=== PATIENT | female | born 1995 | race Caucasian/White ===

== ENCOUNTER 2017-07-02 19:40 | Emergency (ER) | payer OTHER | END 2017-07-02 22:30 | disposition home or self-care (01) | LOC: M ED 19:40 | DX: B34.9 Viral infection, unspecified (principal); F17.210 Nicotine dependence, cigarettes, uncomplicated | CPT/HCPCS: 87804 ==

== ENCOUNTER → 2017-12-18 | Outpatient (CLI) | payer OTHER | LOC: M RAD 14:12 | DX: Z34.82 Encounter for supervision of other normal pregnancy, second trimester (principal) | CPT/HCPCS: 76811 ==

== ENCOUNTER → 2017-12-25 | Outpatient (CLI) | payer OTHER | LOC: M SMT 13:23 | DX: Z34.82 Encounter for supervision of other normal pregnancy, second trimester (principal); Z36.89 Encounter for other specified antenatal screening | CPT/HCPCS: 36415 ==

== ENCOUNTER → 2018-01-01 | Outpatient (CLI) | payer OTHER | LOC: M RAD 10:07 | DX: Z34.82 Encounter for supervision of other normal pregnancy, second trimester (principal); Z36.89 Encounter for other specified antenatal screening; Z3A.19 19 weeks gestation of pregnancy | CPT/HCPCS: 76816 ==

== ENCOUNTER → 2018-01-26 | Outpatient (CLI) | payer OTHER | LOC: M RAD 14:11 | DX: Z36.89 Encounter for other specified antenatal screening (principal); Z3A.23 23 weeks gestation of pregnancy | CPT/HCPCS: 76816 ==

== ENCOUNTER → 2018-02-15 | Outpatient (CLI) | payer OTHER ==
[2018-02-15 13:19] LABS: HEMATOCRIT 35.7 % (36.0-47.0); HEMOGLOBIN 11.5 g/dl (12.0-15.5); MEAN CORPUSCULAR HEMOGLOBIN 30.1 pg (27.0-33.0); MEAN CORPUSCULAR HGB CONC 32.2 g/dl (32.0-36.5); MEAN CORPUSCULAR VOLUME 93.5 fl (80.0-96.0); PLATELET COUNT, AUTOMATED 118 10^3/uL (150-450); RED BLOOD COUNT 3.82 10^6/uL (4.00-5.40); RED CELL DISTRIBUTION WIDTH 13.3 % (11.5-14.5); WHITE BLOOD COUNT 16.3 10^3/uL (4.0-10.0)
[2018-02-15 13:21] LABS: POSITIVE MORPH POS FLAG
[2018-02-15 14:52] LABS: GLUCOSE CHALLENGE TEST 1 HOUR 181 MG/DL (LESS THAN 140)
== END ==
LOC: M SMT 09:59
DX: Z34.82 Encounter for supervision of other normal pregnancy, second trimester (principal)
CPT/HCPCS: 82950

== ENCOUNTER → 2018-03-13 | Outpatient (CLI) | payer OTHER ==
[2018-03-13 08:44] LABS: GLUCOSE, FASTING 93 MG/DL (LESS THAN 95)
[2018-03-13 13:54] LABS: 3 HR GLUCOSE 78 MG/DL (LESS THAN 140)
[2018-03-13 15:02] LABS: 1 HR GLUCOSE 230 MG/DL (LESS THAN 180)
[2018-03-13 15:03] LABS: 2 HR GLUCOSE 187 MG/DL (LESS THAN 155)
== END ==
LOC: M LAB 08:03
DX: Z34.82 Encounter for supervision of other normal pregnancy, second trimester (principal)

== ENCOUNTER → 2018-04-24 | Outpatient (REF) | payer OTHER | LOC: M LAB REF 17:15 | DX: Z34.83 Encounter for supervision of other normal pregnancy, third trimester (principal); Z3A.00 Weeks of gestation of pregnancy not specified ==

== ENCOUNTER 2018-05-12 13:45 | Inpatient (IN) | payer OTHER ==
[2018-05-12 14:39] LABS: HEMATOCRIT 35.7 % (36.0-47.0); HEMOGLOBIN 11.6 g/dl (12.0-15.5); MEAN CORPUSCULAR HGB CONC 32.5 g/dl (32.0-36.5); PLATELET COUNT, AUTOMATED 152 10^3/uL (150-450); RED CELL DISTRIBUTION WIDTH 13.6 % (11.5-14.5); WHITE BLOOD COUNT 15.3 10^3/uL (4.0-10.0)
[2018-05-12 15:13] LABS: BEDSIDE GLUCOSE 108 MG/DL (70-105)
[2018-05-12] MEDS: OXYTOCIN DRIP 30 UNITS in APPROPRIATE DILUENT 1 EA IV (15:39)
[2018-05-12] MEDS: LR 1,000 ML IV (15:39)
[2018-05-12] MEDS ORDERED: FENTANYL 2MCG/ML ROPIVACAINE 0.2% IN 0.9% NACL 200ML IVBAG As Ordered (19:40)
[2018-05-12] MEDS ORDERED: NALOXONE INJ 0.4 MG/1 ML VIAL (J2310) IV (22:00)
[2018-05-12] MEDS ORDERED: EPIDURAL COMMENT XX (22:00)
[2018-05-12] MEDS ORDERED: EPIDURAL/PCA KEYS XX (22:00)
[2018-05-12] MEDS ORDERED: diphenhydrAMINE INJ 50MG/ML VIAL (J1200) IV (22:00)
[2018-05-12] MEDS ORDERED: REFRIGERATOR IV KEYS XX (22:00)
[2018-05-12] MEDS ORDERED: ePHEDrine SULFATE 25 MG/5 ML(5MG/ML) SYRINGE IV (22:00)
[2018-05-12] MEDS ORDERED: FENTANYL/ROPIVACAINE/NACL BAG 200 ML EPIDURAL (22:00)
[2018-05-12] MEDS ORDERED: ONDANSETRON 4MG/2ML VIAL (J2405) IV (22:00)
[2018-05-12 23:46] LABS: BEDSIDE GLUCOSE 73 MG/DL (70-105)
[2018-05-13] MEDS: OXYTOCIN DRIP 30 UNITS in APPROPRIATE DILUENT 1 EA IV (08:17)
[2018-05-13] MEDS ORDERED: DIBUCAINE 1% OINTMENT 30GM TOP (08:30)
[2018-05-13] MEDS ORDERED: MEASLES,MUMPS,RUBELLA VACCINE INJ (MMR-II) (90707) SC (08:30)
[2018-05-13] MEDS ORDERED: METHYLERGONOVINE MALEATE 0.2 MG TAB PO (08:30)
[2018-05-13] MEDS ORDERED: ANUSOL HC CREAM 30GM TOP (08:30)
[2018-05-13] MEDS ORDERED: RHOGAM 300 MCG (1500 IU) INJ (J2790) IM (08:30)
[2018-05-13] MEDS ORDERED: DOCUSATE SODIUM 100 MG CAP PO (08:30)
[2018-05-13] MEDS: LIDOCAINE 1% MDV 20ML VIAL SC (08:30)
[2018-05-13] MEDS: PRENATAL VITAMINS CHEWABLE TABLET PO (09:29)
[2018-05-13] MEDS: ACETAMINOPHEN 500 MG TAB PO (09:29)
[2018-05-13] MEDS: IBUPROFEN 800 MG TAB PO (18:25)
[2018-05-14] MEDS: IBUPROFEN 800 MG TAB PO ×2 (02:58→13:15)
[2018-05-14] MEDS: PRENATAL VITAMINS CHEWABLE TABLET PO (07:55)
[2018-05-14] MEDS: ACETAMINOPHEN 500 MG TAB PO ×2 (07:59→16:56)
[2018-05-15] MEDS: IBUPROFEN 800 MG TAB PO (05:35)
[2018-05-15] MEDS: PRENATAL VITAMINS CHEWABLE TABLET PO (08:40)
== END 2018-05-15 10:26 | disposition home or self-care (01) | DRG 560 ==
LOC: M LDI 13:45 → M OBS 05-13 09:42
PROVIDERS: Advanced Practice Midwife
PROC: 10E0XZZ Delivery of Products of Conception, External Approach (ICD-10-PCS; principal; 2018-05-13)
PROC: 0KQM0ZZ Repair Perineum Muscle, Open Approach (ICD-10-PCS; 2018-05-13)
PROC: 3E033VJ Introduction of Other Hormone into Peripheral Vein, Percutaneous Approach (ICD-10-PCS; 2018-05-13)
DX: O24.429 Gestational diabetes mellitus in childbirth, unspecified control (principal); O76 Abnormality in fetal heart rate and rhythm complicating labor and delivery; Z37.0 Single live birth; Z3A.39 39 weeks gestation of pregnancy; O70.1 Second degree perineal laceration during delivery

== ENCOUNTER 2018-08-11 22:14 | Emergency (ER) | payer OTHER, SELFPAY ==
[~2018-08-11] VITALS: Ht 157.5 cm; Wt 86.4 kg
[~2018-08-11 22:14] MED LIST: IBUP-1114 PO; MAPA500T2 PO; PRENTAB9 PO
[2018-08-11 23:10] LABS: BASO # 0.1 10^3/uL (0.0-0.2); BASO % 0.7 % (0.0-1.0); EOS # 0.3 10^3/uL (0.0-0.50); HEMATOCRIT 44.5 % (36.0-47.0); HEMOGLOBIN 14.1 g/dl (12.0-15.5); LYMPH # 3.2 10^3/uL (1.5-6.5); LYMPH % 30.1 % (24.0-44.0); MEAN CORPUSCULAR HEMOGLOBIN 26.7 pg (27.0-33.0); MEAN CORPUSCULAR HGB CONC 31.7 g/dl (32.0-36.5); MEAN CORPUSCULAR VOLUME 84.1 fl (80.0-96.0); MONO # 0.6 10^3/uL (0.0-0.8); MONO % 5.6 % (0.0-5.0); NEUTROPHILS # 6.3 10^3/uL (1.8-7.7); NEUTROPHILS % 59.7 % (36.0-66.0); PLATELET COUNT, AUTOMATED 203 10^3/uL (150-450); RED BLOOD COUNT 5.29 10^6/uL (4.00-5.40); WHITE BLOOD COUNT 10.6 10^3/uL (4.0-10.0)
[2018-08-11 23:18] LABS: ALT/SGPT 50 U/L (12-78); BILIRUBIN,TOTAL 0.1 MG/DL (0.2-1.0); BLOOD UREA NITROGEN 11 MG/DL (7-18); CALCIUM LEVEL 8.6 MG/DL (8.5-10.1); CARBON DIOXIDE LEVEL 27 MEQ/L (21-32); CHLORIDE LEVEL 110 MEQ/L (98-107); CREATININE FOR GFR 0.79 MG/DL (0.55-1.30); GLOMERULAR FILTRATION RATE > 60.0 (>60); GLUCOSE, FASTING 89 MG/DL (70-100); LIPASE 173 U/L (73-393); SODIUM LEVEL 145 MEQ/L (136-145); TOTAL PROTEIN 7.8 GM/DL (6.4-8.2)
[2018-08-11] MEDS ORDERED: KETOROLAC 30 MG/ML VIAL (J1885) IV ONE (23:45)
[2018-08-11] MEDS ORDERED: NS 1,000 ML IV ONE (23:45)
[2018-08-11] MEDS ORDERED: ISOVUE-370 76% 100ML VIAL (Q9967) As Ordered ONE (23:48)
[2018-08-12 00:59] VITALS: BP 128/66
--- NOTE | 2018-08-12 01:24 | REPVR ---
EXAM: CT Abdomen and Pelvis With Contrast EXAM DATE/TIME: 08/11/2018 12:14 AM CLINICAL HISTORY: 23 years old, female; Pain; Abdominal pain; Periumbilical; Additional info: Sudden umbilical pain, heavy lifting today TECHNIQUE: Axial computed tomography images of the abdomen and pelvis with intravenous contrast. All CT scans at this facility use at least one of these dose optimization techniques: automated exposure control; mA and/or kV adjustment per patient size (includes targeted exams where dose is matched to clinical indication); or iterative reconstruction. Coronal and sagittal reformatted images were created and reviewed. CONTRAST: Contrast Material: 100 ml of ISOVUE 370; Contrast Route: IV COMPARISON: US OBS FOLL UP OR REPEAT EACH GES 01/26/2018 2:20 PM FINDINGS: Lower thorax: Unremarkable. ABDOMEN: Liver: Unremarkable. Gallbladder and bile ducts: No radiodense gallstones. No biliary ductal dilatation. Pancreas: Unremarkable. Spleen: Unremarkable. Adrenals: Unremarkable. Kidneys and ureters: Nonobstructing right renal calculus. No hydronephrosis. Stomach and bowel: No bowel wall thickening. No obstruction. No pneumatosis. Appendix: Normal. PELVIS: Bladder: Unremarkable. Reproductive: Probable involuting left ovarian corpus luteal cyst. ABDOMEN and PELVIS: Intraperitoneal space: Trace nonspecific free pelvic fluid, likely physiologic. No organized fluid collection. No free air. Bones/joints: No acute osseous abnormality. Soft tissues: Tiny, fat-containing umbilical hernia without evidence of incarceration or obstruction. Vasculature: Unremarkable. No aneurysm. Lymph nodes: No pathologically enlarged lymph nodes. IMPRESSION: 1. Tiny, fat-containing umbilical hernia without evidence of incarceration or obstruction. 2. Probable involuting left ovarian corpus luteal cyst and trace nonspecific free pelvic fluid, likely physiologic. 3. Additional findings, as above. Electronically signed by: Joce Ross On 08/12/2018 01:24:13 AM
== END 2018-08-12 01:51 | disposition home or self-care (01) ==
LOC: M ED 22:14
DX: K42.0 Umbilical hernia with obstruction, without gangrene (principal); R01.1 Cardiac murmur, unspecified; J45.909 Unspecified asthma, uncomplicated; K59.00 Constipation, unspecified; K52.9 Noninfective gastroenteritis and colitis, unspecified; F17.200 Nicotine dependence, unspecified, uncomplicated
CPT/HCPCS: 74177; 80053; 81001; 81025; 83690; 85025; 96374; 99284; J1885; Q9967

== ENCOUNTER 2018-09-24 08:56 | Day surgery (SDC) | payer OTHER, SELFPAY ==
[~2018-09-24] VITALS: Ht 157.5 cm; Wt 88.6 kg
[~2018-09-24 08:56] MED LIST changes: +LIDOCAINE 1% MDV 20ML VIAL SQ PRN; +LR 1,000 ML IV ONE; +PROAAER10 INH
[2018-09-24 09:48] LABS: URINE PREG TEST NEGATIVE (NEGATIVE)
[2018-09-24] MEDS ORDERED: PROPOFOL 200 MG/20 ML VIAL As Ordered ONE (11:10)
[2018-09-24] MEDS ORDERED: ROCURONIUM BROMIDE 50 MG/5 ML VIAL As Ordered ONE (11:10)
[2018-09-24] MEDS ORDERED: LIDOCAINE 2% INJ 100 MG/5 ML SDV (FOR ANES.) As Ordered ONE (11:10)
[2018-09-24] MEDS ORDERED: MIDAZOLAM INJ 2 MG/2 ML VIAL (J2250) As Ordered ONE (11:12)
[2018-09-24] MEDS ORDERED: fentaNYL 100 MCG/2 ML INJECTION (J3010) As Ordered ONE ×2 (11:12→12:15)
[2018-09-24] MEDS ORDERED: BUPIVACAINE/EPIN 0.25% 30 ML VIAL As Ordered ONE (11:23)
[2018-09-24] MEDS ORDERED: ONDANSETRON 4MG/2ML VIAL (J2405) As Ordered ONE (12:28)
[2018-09-24] MEDS ORDERED: SUGAMMADEX SODIUM 500 MG/5 ML VIAL (BRIDION) As Ordered ONE (12:28)
[2018-09-24] MEDS ORDERED: KETOROLAC 60 MG/2 ML VIAL (J1885) As Ordered ONE (12:43)
[2018-09-24] MEDS ORDERED: NORCO, ANEXSIA 5/325MG TABLET (HYDROcodone/ACETAMINOPHEN) PO PRN (13:30)
[2018-09-24] MEDS ORDERED: LR 1,000 ML IV SCH (13:30)
[2018-09-24] MEDS ORDERED: fentaNYL 100 MCG/2 ML INJECTION (J3010) IV PRN (13:30)
[2018-09-24] MEDS ORDERED: ONDANSETRON 4MG/2ML VIAL (J2405) IV PRN (13:30)
[2018-09-24] MEDS: PERCOCET 5MG/325MG TAB PO PRN ×2 (13:40→14:15)
--- NOTE | 2018-09-24 15:26 | RO ---
DATE OF PROCEDURE: 09/24/2018 PREOPERATIVE DIAGNOSIS: Umbilical hernia. POSTOPERATIVE DIAGNOSIS: Umbilical hernia. PROCEDURE: Laparoscopic umbilical hernia repair. SURGEON: Dr. Lito Patel ASSESSMENT: None. ANESTHESIA: General. ESTIMATED BLOOD LOSS (EBL): 5 mL. COMPLICATIONS: None. INDICATIONS FOR PROCEDURE: Patient is a 23-year-old female who presented with umbilical pain to the emergency room, found to have a small umbilical hernia. Recommendation was to proceed with laparoscopic, possible open repair. Risks and benefits of procedure, not limited to but including, bleeding, infection, hernia recurrence, hernia formation, damage to surrounding structure, need for further surgery were discussed in detail with the patient. Informed consent was obtained and procedure was planned. DESCRIPTION OF PROCEDURE: Patient was brought back to operating room 3. After sufficient sedation, the abdomen was sterilely prepped and draped. Next, time-out was done to confirm proper patient, proper procedure. Following that, 5-mm incision made in left lower quadrant, Veress needle was inserted, and the abdomen was insufflated 15 mmHg. Once inside, there is a very tiny umbilical hernia identified probably 3-4 mm in size. Another left lower quadrant 5 mm port was then placed. Using the Enseal, the peritoneum was incised circumferentially around the umbilical hernia, and the hernia sac was reduced. Once this was completed, it was dissected free for about 9 cm around. A 9 cm round Parietex mesh was then taken, had #0 Vicryl sutures placed in all four corners and was placed inside the abdomen. Transfascial sutures were brought out through the abdominal wall using Scott-Manuel needle and then tied in place. Two rows of SecureStrap tackers were then placed around the perimeter of the mesh completing the procedure. Once this was completed, there was no bleeding identified. The abdomen desufflated. Skin incisions were closed with #4-0 Vicryl subcuticular sutures. The abdomen was cleaned and dried. Steri-Strips, 4x4, and tape were applied, thus ending procedure.
[2018-09-24 16:15] VITALS: BP 124/67
== END 2018-09-24 16:29 | disposition home or self-care (01) ==
LOC: M SDC 08:56
PROVIDERS: ATTEND Surgery
DX: K42.9 Umbilical hernia without obstruction or gangrene (principal); J45.909 Unspecified asthma, uncomplicated; Z79.51 Long term (current) use of inhaled steroids; F17.210 Nicotine dependence, cigarettes, uncomplicated
CPT/HCPCS: 49652; 84703; C1781; J0690; J1885; J2250; J2405; J3010

== ENCOUNTER → 2020-04-04 | Outpatient (REF) | payer OTHER ==
[~2020-04-04] MED LIST changes: -LIDOCAINE 1% MDV 20ML VIAL SQ PRN; -LR 1,000 ML IV ONE
== END ==
LOC: M WUC 15:50
PROVIDERS: ATTEND Physician Assistant
DX: R10.10 Upper abdominal pain, unspecified (principal)

== ENCOUNTER → 2020-07-01 | Outpatient (CLI) | payer BC ==
[~2020-07-01] MED LIST changes: +GASTROGRAFIN SOLUTION 30ML (Q9963) As Ordered ONE; +ISOVUE-370 76% 100ML VIAL As Ordered ONE
--- NOTE | 2020-07-01 10:56 | REP ---
INDICATION: UNSPECIFIED ABDOMINAL PAIN. COMPARISON: 08/12/2018 TECHNIQUE: Axial contrast-enhanced images from the lung bases to the pubic symphysis using oral and 100 cc Isovue 370 intravenous contrast material. Coronal and sagittal reformations obtained. This CT examination was performed using the following dose reduction techniques: Automated exposure control, adjustment of mA and/or kv according to the patient's size, and the use of iterative reconstruction technique. FINDINGS: Liver, spleen, pancreas, gallbladder, bilateral adrenal glands and kidneys are normal. The enteric system including stomach, small, and large bowel appears normal. No evidence for obstruction or acute inflammatory process. Normal terminal ileum and appendix are identified in the right lower quadrant. Few scattered sigmoid diverticula noted without acute diverticulitis. Pelvis demonstrates normal bladder and age-appropriate uterus/adnexa. No ascites. No free air. No intraperitoneal or retroperitoneal adenopathy. Abdominal aorta and vasculature appear normal. Musculoskeletal structures are intact and without acute osseous abnormality. IMPRESSION: No acute abdominopelvic pathology appreciated. <Electronically signed by Rudy Tyler > 07/01/20 [id number]
== END ==
LOC: M RAD 08:37
PROVIDERS: ATTEND Nurse Practitioner Family
DX: R10.9 Unspecified abdominal pain (principal)
CPT/HCPCS: 74177; Q9963; Q9967